=== PATIENT | female | born 1970 | race Caucasian/White ===

== ENCOUNTER → 2018-07-29 | Outpatient (CLI) | payer MEDICARE ==
[~2018-07-29] MED LIST: AMPH20TA2 PO; CLON0.3T47 PO; CLON0.5T PO; HYDR1TAB13 PO; LAMO200T3 PO; LEVO200T5 PO; NAPR-685 PO; RISP0.253 PO; VENL150C PO
== END | disposition home or self-care (01) ==
LOC: CVU 15:41
PROVIDERS: ATTEND Physician Assistant Medical
DX: M25.561 Pain in right knee (principal); M25.562 Pain in left knee; M25.551 Pain in right hip; M25.50 Pain in unspecified joint; E03.9 Hypothyroidism, unspecified; E21.3 Hyperparathyroidism, unspecified; R21 Rash and other nonspecific skin eruption; M79.669 Pain in unspecified lower leg; Z87.891 Personal history of nicotine dependence
CPT/HCPCS: 93922

== ENCOUNTER 2018-09-17 09:56 | Outpatient (CLI) | payer MEDICARE | END 2018-09-17 23:59 | disposition home or self-care (01) | LOC: CARD 09:56 | PROVIDERS: ATTEND Physician Assistant Medical | DX: G62.9 Polyneuropathy, unspecified (principal); M79.672 Pain in left foot; M79.671 Pain in right foot | CPT/HCPCS: 95886; 95909 ==